=== PATIENT | female | born 1995 | race Hispanic/Latino ===

== ENCOUNTER 2021-12-09 18:27 | Emergency (ER) | payer SELFPAY ==
[2021-12-09] MEDS ORDERED: Lidocaine 1% (PF) 30 ML VIAL ONE (19:33)
[2021-12-09] MEDS ORDERED: Lidocaine 4% Cream 5 GM TUBE w/ Tegaderm ONE (19:34)
== END 2021-12-09 21:06 | disposition home or self-care (01) ==
LOC: ERS 18:27
DX: S80.852A Superficial foreign body, left lower leg, initial encounter (principal); L03.012 Cellulitis of left finger; W22.8XXA Striking against or struck by other objects, initial encounter
CPT/HCPCS: 99283; J2001